=== PATIENT | male | born 1970 | race Caucasian/White ===

== ENCOUNTER 2016-11-23 17:45 | Emergency (ER) | payer BC ==
[~2016-11-23 17:45] MED LIST: DIAZEPAM PO; FLEXERIL10 MG PO; LORTAB 5/500 TA1 TA1 PO; LORTAB 7.5-3251 EACH PO; NO MEDICATIONS; VOLTAREN50 MG PO
[2016-11-23] MEDS ORDERED: LORTAB PO (17:51)
== END 2016-11-23 19:19 | disposition home or self-care (01) ==
LOC: SED 17:45
DX: S05.01XA Injury of conjunctiva and corneal abrasion without foreign body, right eye, initial encounter (principal); Z23 Encounter for immunization; Y92.69 Other specified industrial and construction area as the place of occurrence of the external cause; Y99.0 Civilian activity done for income or pay
CPT/HCPCS: 65220; 90471; 90715; 99283